=== PATIENT | male | born 1965 | race Caucasian/White ===

== ENCOUNTER 2025-01-08 14:10 | Emergency (ER) | payer BC ==
[~2025-01-08] VITALS: Ht 170.2 cm; Wt 90.7 kg
[2025-01-08 15:16] VITALS: BP 121/85; TEMP 98.4
[2025-01-08] MEDS ORDERED: SULF1TAB48 PO (15:50)
[2025-01-08 16:31] VITALS: O2SAT 99
== END 2025-01-08 16:32 | disposition home or self-care (01) ==
LOC: ER 14:11
DX: L03.114 Cellulitis of left upper limb (principal); Z91.048 Other nonmedicinal substance allergy status